=== PATIENT | female | born 1990 | race Two or more races ===

== ENCOUNTER 2018-10-23 23:55 | Emergency (ER) | payer OTHER, SELFPAY ==
[2018-10-23 23:56] VITALS: BP 104/63; PULSE 64; RESP 14; TEMP 36.6; O2SAT 98; BMI 28.9
--- NOTE | 2018-10-24 00:20 | ED.RN ---
PT REQUESTED AN ICE PACK, AND WAS GIVEN ONE TO PLACE ON HER BELLY
[2018-10-24] MEDS: Ketorolac 30 MG/ML Syringe IV (00:52)
[2018-10-24 01:00] LABS: Absolute Lymphocyte Count 2.87 X10^3/ul (0.83-4.51); Absolute Neutrophil Count 4.6 X10^3/uL (2.0-7.7); Basophil# 0.03 X10^3/uL; Basophil% 0.4 % (0-1); Eosinophil# 0.05 X10^3/uL; Eosinophils% 0.6 % (0-5); Hematocrit 34.7 % (37-47); Hemoglobin 11.6 g/dl (12.0-15.0); Lymphocyte # 2.87 X10^3/ul (4.0); Lymphocyte % 35.6 % (19-41); Mean Corp Hgb Conc 33.4 g/gl (32-36); Mean Corpuscular Hgb 25.1 pg (27.0-32.0); Mean Corpuscular Volume 74.9 fL (81-99); Mean Platelet Vol. 11.6 fl (6.2-12.0); Monocyte# 0.52 X10^3/uL; Monocyte% 6.5 % (0-10); Neutrophil # 4.57 X10^3/uL (2.7-7.7); Neutrophil % 56.7 % (47-70); Platelet Count 241 K/mm3 (150-450); RBC Distribution Width CV 14.6 % (11.6-14.6); RBC Distribution Width SD 39.4 fl (35.1-43.9); Red Blood Count 4.63 M/mm3 (4.2-5.4); White Blood Count 8.1 K/mm3 (4.4-11.0)
[2018-10-24 01:01] LABS: Differential Indicated SCAN CRITERIA MET; POSITIVE COUNT NO; POSITIVE DIFFERENTIAL NO; POSITIVE MORPHOLOGY YES
[2018-10-24 01:13] LABS: Anion Gap 7 (5-15); BUN 11 mg/dL (7-18); BUN/Creat Ratio 18.6 RATIO (10-20); Calcium,Total 8.4 mg/dL (8.5-10.1); Chloride 107 mmol/L (98-107); Creatinine, Serum 0.59 mg/dL (0.55-1.02); EST Glomerular Filtration Rate 129 mL/min (>60); Est Glom Filt Rate - Afr Amer 156 mL/min (>60); Estimated Creatinine Clearance 146.97 ml/min; Glucose 87 mg/dL (74-106); Potassium 3.7 mmol/L (3.5-5.1); Sodium Level 139 mmol/L (136-145)
[2018-10-24 01:14] LABS: Anisocytosis 1+; Differential Comment SCAN
[2018-10-24 01:15] LABS: Hypochromasia 1+; Microcytosis 1+; Platelet Estimate ADEQUATE (ADEQ); Platelet Morphology LARGE
[2018-10-24 01:18] LABS: Mucous, Urine 0 SEEN /hpf (<or=2+); Red Blood Cells-Urine 0 SEEN /hpf (0-5)
[2018-10-24 01:24] LABS: Color, Urine Straw (Yellow); Glucose, Dipstick Normal (Normal); Ketone-Dipstick Negative (Negative); Leukocyte Esterase-Dipstick 25 /ul (Negative); Nitrite-Dipstick Negative (Negative); Occult Blood-Urine Negative /ul (Negative); Protein-Dipstick Negative (Negative); Urine Bilirubin Dipstick Negative (Negative); Urine Clarity Clear (Clear); Urine Urobilinogen Normal (Normal)
[2018-10-24 01:29] LABS: Bacteria RARE /hpf (None Seen); Internal QC Validated? YES +Cl - CLEAR BKGD; Pregnancy, Urine Negative Negative; Squamous Epithelial Cells - UA 0-5 SEEN /hpf (5-10); White Blood Cells 0-5 SEEN /hpf (0-5)
--- NOTE | 2018-10-24 03:09 | ED.DCSUM_ITS ---
- ER Visit Summary Date of Service: 10/24/18 Chief Complaint: Abdominal pain History of Present Illness: The patient is a 28 F who presents with abdominal pain. She complains of lower abdominal/pelvic pain. Is been present since yesterday. She described it as shooting and spasms. It is midline. She has had some relief with Aleve. She denies nausea vomiting or diarrhea. She also reports urinary dysuria frequency urgency. She denies history of sexually transmitted infection. Her last menstrual period was October 15. She denies any current vaginal bleeding or discharge. She also complains of muscle aches headache and some light sensitivity. Physical Examination: Afebrile vitals normal Moist mucous membranes Heart regular rate and rhythm Lungs are we are Abdomen soft nondistended she does have suprapubic abdominal tenderness Speculum pelvic examination was poorly tolerated. She does have some cervical erythema Test Results: CBC BMP unremarkable. Urinalysis not consistent with cystitis. negative. Emergency Department Course and Treatment: Labs and urinalysis unremarkable as above. I did perform speculum examination and was able to visualize the cervix which appeared erythematous. She had significant discomfort and asked that the examination be stopped prior to me being able to do a bimanual exam or obtain cultures. Therefore we will empirically treat for possible STD/PID. She was given IM Rocephin and will be prescribed doxycycline. She was referred to gynecology. She understands to return for new or worsening symptoms. She was discharged. Treatment Plan: [] Disposition: Discharge Impression: Pelvic pain Cervicitis This note was generated with [employer] dictation software. It may contain incorrect words, spelling, and punctuation that were not noted in review of the chart prior to signing ED Disposition - Plan for ED Patient: Chief Complaint: Abd Pain Referrals: Care Physician,No Primary [Primary Care Provider] -
--- NOTE | 2018-10-24 03:09 | ED.DEP ---
ED Disposition - Plan for ED Patient: Chief Complaint: Abd Pain Instructions: ED Pelvic Pain [facility] Prescriptions: Doxycycline 100 mg PO BID #20 cap Referrals: Care Physician,No Primary [Primary Care Provider] - Sofia Dhillon DO [STAFF PHYSICIAN] -
[2018-10-24] MEDS: Ceftriaxone 500 MG Vial 250 MG IM (03:33)
[2018-10-24 04:02] VITALS: PULSE 70; RESP 16; O2SAT 97
== END 2018-10-24 04:26 | disposition home or self-care (01) ==
PROVIDERS: Emergency Provider Emergency Medicine
DX: N72 Inflammatory disease of cervix uteri (principal); R10.2 Pelvic and perineal pain; F32.9 Major depressive disorder, single episode, unspecified
CPT/HCPCS: 80048; 81001; 81025; 85025; 96372; 96374; 99283; A4216